=== PATIENT | female | born 2000 | race Caucasian/White ===

== ENCOUNTER 2020-02-19 04:56 | Emergency (ER) | payer OTHER ==
[2020-02-19] MEDS ORDERED: Zofran 4 MG/2 ML VIAL IV ONE (05:36)
[2020-02-19] MEDS ORDERED: Hydromorphone 1 mg/ml Ampule IV ONE (05:36)
[2020-02-19] MEDS ORDERED: Sodium Chloride 0.9% 1000 ML 1,000 ML IV STA (05:36)
--- NOTE | 2020-02-19 05:36 | ERPHSYRPT ---
- History of Present Illness Historian: patient Exam Limitations: no limitations Timing/Duration: today (Most recently), intermittent (For a month), worse (This morning) Activities at Onset: sleep Quality: pressure, sharpness Abdominal Pain Onset Location: RUQ, epigastric Pain Radiation: back Severity of Pain-Max: moderate Severity of Pain-Current: moderate Modifying Factors: Improves With: vomiting Associated Symptoms: back, nausea, vomiting, No chest pain, No fever/chills, No shortness of breath Previous symptoms: same symptoms as today Hx Tetanus, Diphtheria Vaccination/Date Given: Yes Hx Influenza Vaccination/Date Given: No Hx Pneumococcal Vaccination/Date Given: No <GROVER VINES - Last Filed: 02/19/20 06:56> <PATRIC ALCALA - Last Filed: 02/19/20 10:15> - History of Present Illness Time Seen by Provider: 02/19/20 05:15 Physician History: This is an obese 19-year-old white female who presents with intermittent epigastric and right upper quadrant abdominal pain for the last month. It typically occurs early in the morning and is associated with nausea and vomiting as well as bloating and gassiness. Occasionally it radiates to the back. Patient has had no prior abdominal surgeries. She denies fever she denies chest pain she denies shortness of breath. She has had no evaluation or work-up in the past. It wakes her up out of sleep and she cannot go back to sleep because she is uncomfortable. Has had no diarrhea. (GROVER VINES) Allergies/Adverse Reactions: No Known Drug Allergies Allergy (Unverified 02/19/20 05:02) Home Medications: No Home Meds 05/25/12 [History] Travel Risk - International Travel Have you traveled outside of the country in past 3 weeks: No - Coronavirus Screening Are you exhibiting any of the following symptoms?: No Close contact with a COVID-19 positive Pt in past 14-21 Days: No <GROVER VINES - Last Filed: 02/19/20 06:56> - Review of Systems Constitutional: No Symptoms Eyes: No Symptoms Ears, Nose, & Throat: No Symptoms Respiratory: No Symptoms Cardiac: No Symptoms Abdominal/Gastrointestinal: Abdominal Pain, Nausea, Vomiting Genitourinary Symptoms: No Symptoms Musculoskeletal: No Symptoms Skin: No Symptoms Neurological: No Symptoms Psychological: No Symptoms Endocrine: No Symptoms Hematologic/Lymphatic: No Symptoms Immunological/Allergic: No Symptoms All Other Systems: Reviewed and Negative <GROVER VINES - Last Filed: 02/19/20 06:56> - Past Medical History Pertinent Past Medical History: No Neurological History: No Pertinent History ENT History: No Pertinent History Cardiac History: No Pertinent History Respiratory History: No Pertinent History Endocrine Medical History: No Pertinent History Musculoskeletal History: Other GI Medical History: No Pertinent History History: No Pertinent History Psycho-Social History: No Pertinent History Female Reproductive Disorders: No Pertinent History - Past Surgical History Past Surgical History: Yes Neuro Surgical History: No Pertinent History Cardiac: No Pertinent History Respiratory: No Pertinent History Gastrointestinal: No Pertinent History Genitourinary: No Pertinent History Musculoskeletal: No Pertinent History Female Surgical History: No Pertinent History Other Surgical History: CYST REMOVAL ON FACE,TONSILS. - Social History Smoking Status: Never smoker Exposure to second hand smoke: No Alcohol Use: None Drug Use: none Patient Lives Alone: No Significant Family History: no pertinent family hx <GROVER VINES - Last Filed: 02/19/20 06:56> - Physical Exam General Appearance: no apparent distress, alert, anxiety, obese Eye Exam: PERRL/EOMI, eyes nml inspection Ears, Nose, Throat Exam: normal ENT inspection, moist mucous membranes Neck Exam: normal inspection, non-tender, supple, full range of motion Respiratory Exam: normal breath sounds, lungs clear, airway intact, No chest tenderness, No respiratory distress Cardiovascular Exam: regular rate/rhythm, normal heart sounds, normal peripheral pulses Gastrointestinal/Abdomen Exam: soft, normal bowel sounds, tenderness (And epi gastric region), guarding, No rebound Pelvic Exam: not done Rectal Exam: not done Back Exam: normal inspection, normal range of motion, No CVA tenderness, No vertebral tenderness Extremity Exam: normal inspection, normal range of motion, pelvis stable Neurologic Exam: alert, oriented x 3, cooperative, revising clerk II-XII nml as tested, normal mood/affect, nml cerebellar function, nml station & gait, sensation nml Skin Exam: normal color, warm, dry Lymphatic Exam: No adenopathy SpO2 Interpretation: normal O2 Delivery: Room Air <GROVER VINES - Last Filed: 02/19/20 06:56> - Nursing Vital Signs Nursing Vital Signs: Initial Vital Signs Temperature 98 F 02/19/20 04:57 Pulse Rate 94 H 02/19/20 04:57 Respiratory Rate 16 02/19/20 04:57 Blood Pressure 113/76 02/19/20 04:57 O2 Sat by Pulse Oximetry 99 02/19/20 04:57 Pain Scale Pain Intensity 3 - Course Nursing assessment & vital signs reviewed: Yes <GROVER VINES - Last Filed: 02/19/20 06:56> - CT Exams Abdomen/Pelvis CT Interpretation: Tele-radiologist Report, Normal Appendix, Other (fluid in pelvis with cyst and rt lung nodule) - Radiology Ultrasound Exam Pelvis Ultrasound: discussed w/radiologist, No Torsion/Nml Flow, Other (ovarian cysts and fluid/adnexa cysts.) <PATRIC ALCALA - Last Filed: 02/19/20 10:15> Ordered Tests: Active Orders 24 hr Category Date Time Status IV Insertion STAT Care 02/19/20 05:36 Active ABDOMEN AND PELVIS W/0 CONTRAS [CT] Stat Exams 02/19/20 05:38 Taken PELVIS TRANS VAGINAL [US] Stat Exams 02/19/20 09:40 Taken AMYLASE Stat Lab 02/19/20 05:15 Completed BLOOD CULTURE Stat Lab 02/19/20 06:15 Received CBC W DIFF Stat Lab 02/19/20 05:15 Completed CMP Stat Lab 02/19/20 05:15 Completed HCG,QUALITATIVE URINE Stat Lab 02/19/20 05:15 Completed LIPASE Stat Lab 02/19/20 05:15 Completed Lactic Acid Stat Lab 02/19/20 06:40 Completed UA W/RFX UR CULTURE Stat Lab 02/19/20 05:15 Completed Medication Summary Discontinued Medications Generic Name Dose Route Start Last Admin Trade Name Freq PRN Reason Stop Dose Admin Hydromorphone HCl 1 mg 02/19/20 05:36 02/19/20 05:49 Hydromorphone 1 Mg/Ml Ampule IV 02/19/20 05:37 1 mg STAT ONE Administration Hydromorphone HCl Confirm 02/19/20 05:49 Hydromorphone 1 Mg/Ml Ampule Administered 02/19/20 05:50 Dose 1 mg .ROUTE .STK-MED ONE Sodium Chloride 1,000 mls @ 999 mls/hr 02/19/20 05:36 02/19/20 07:06 Sodium Chloride 0.9% 1000 Ml IV 02/19/20 06:36 Infused .Q1H1M STA Infusion Sodium Chloride Confirm 02/19/20 05:49 Sodium Chloride 0.9% 1000 Ml Administered 02/19/20 05:50 Dose 1,000 mls @ ud .ROUTE .STK-MED ONE Ondansetron HCl 4 mg 02/19/20 05:36 02/19/20 05:50 Zofran 4 Mg/2 Ml Vial IV 02/19/20 05:37 4 mg STAT ONE Administration Ondansetron HCl Confirm 02/19/20 05:48 Zofran 4 Mg/2 Ml Vial Administered 02/19/20 05:49 Dose 4 mg .ROUTE .STK-MED ONE Lab/Rad Data: Laboratory Result Diagrams 02/19/20 05:15 02/19/20 05:15 Laboratory Results 02/19/20 02/19/20 02/19/20 Range/Units 06:40 05:15 05:15 WBC (4.0-10.5) K/mm3 RBC (4.1-5.4) M/mm3 Hgb (12.0-16.0) gm/dl Hct (35-47) % MCV (78-100) fl MCH (26-32) pg MCHC (32-36) g/dl RDW (11.5-14.0) % Plt Count (150-450) K/mm3 MPV (7.5-11.0) fl Gran % (36.0-66.0) % Eos # (Auto) (0-0.5) Absolute Lymphs (auto) (1.0-4.6) Absolute Monos (auto) (0.0-1.3) Lymphocytes % (24.0-44.0) % Monocytes % (0.0-12.0) % Eosinophils % (0.00-5.0) % Basophils % (0.0-0.4) % Absolute Granulocytes (1.4-6.9) Basophils # (0-0.4) Sodium (137-145) mmol/L Potassium (3.5-5.1) mmol/L Chloride (98-107) mmol/L Carbon Dioxide (22-30) mmol/L Anion Gap (5-15) MEQ/L BUN (7-17) mg/dL Creatinine (0.52-1.04) mg/dL Estimated GFR ML/MIN Glucose (74-106) mg/dL Lactic Acid 1.6 (0.4-2.0) Calcium (8.4-10.2) mg/dL Total Bilirubin (0.2-1.3) mg/dL AST (14-36) U/L ALT (0-35) U/L Alkaline Phosphatase (38-126) U/L Serum Total Protein (6.3-8.2) g/dL Albumin (3.5-5.0) g/dL Amylase (30-110) U/L Lipase (23-300) U/L Urine Color RAD (YELLOW) Urine Appearance SLIGHTLY CLOUDY (CLEAR) Urine pH 6.0 (5-6) Ur Specific [place] 1.024 (1.005-1.025) Urine Protein 30 (Negative) Urine Ketones NEGATIVE (NEGATIVE) Urine Blood NEGATIVE (0-5) Joseph/ul Urine Nitrite NEGATIVE (NEGATIVE) Urine Bilirubin NEGATIVE (NEGATIVE) Urine Urobilinogen 4 (0-1) mg/dL Ur Leukocyte Esterase NEGATIVE (NEGATIVE) Urine WBC (Auto) 6-10 (0-5) /HPF Urine RBC (Auto) NONE (0-2) /HPF U Epithel Cells (Auto) RARE (FEW) /HPF Urine Bacteria (Auto) RARE (NEGATIVE) /HPF Urine Mucus (Auto) SLIGHT (NEGATIVE) /HPF Urine Culture Reflexed NO (NO) Urine Glucose NEGATIVE (NEGATIVE) mg/dL Urine HCG, Qual NEGATIVE (Negative) 02/19/20 02/19/20 Range/Units 05:15 05:15 WBC 8.4 (4.0-10.5) K/mm3 RBC 4.52 (4.1-5.4) M/mm3 Hgb 12.9 (12.0-16.0) gm/dl Hct 41.0 (35-47) % MCV 90.7 (78-100) fl MCH 28.5 (26-32) pg MCHC 31.5 L (32-36) g/dl RDW 13.4 (11.5-14.0) % Plt Count 248 (150-450) K/mm3 MPV 11.6 H (7.5-11.0) fl Gran % 60.6 (36.0-66.0) % Eos # (Auto) 0.07 (0-0.5) Absolute Lymphs (auto) 2.47 (1.0-4.6) Absolute Monos (auto) 0.78 (0.0-1.3) Lymphocytes % 29.3 (24.0-44.0) % Monocytes % 9.2 (0.0-12.0) % Eosinophils % 0.8 (0.00-5.0) % Basophils % 0.1 (0.0-0.4) % Absolute Granulocytes 5.11 (1.4-6.9) Basophils # 0.01 (0-0.4) Sodium 139 (137-145) mmol/L Potassium 4.0 (3.5-5.1) mmol/L Chloride 105 (98-107) mmol/L Carbon Dioxide 25 (22-30) mmol/L Anion Gap 13.4 (5-15) MEQ/L BUN 11 (7-17) mg/dL Creatinine 0.65 (0.52-1.04) mg/dL Estimated GFR > 60.0 ML/MIN Glucose 116 H (74-106) mg/dL Lactic Acid (0.4-2.0) Calcium 9.0 (8.4-10.2) mg/dL Total Bilirubin 0.80 (0.2-1.3) mg/dL AST 476 H (14-36) U/L ALT 345 H (0-35) U/L Alkaline Phosphatase 139 H (38-126) U/L Serum Total Protein 7.6 (6.3-8.2) g/dL Albumin 4.2 (3.5-5.0) g/dL Amylase 61 (30-110) U/L Lipase 112 (23-300) U/L Urine Color (YELLOW) Urine Appearance (CLEAR) Urine pH (5-6) Ur Specific [place] (1.005-1.025) Urine Protein (Negative) Urine Ketones (NEGATIVE) Urine Blood (0-5) Joseph/ul Urine Nitrite (NEGATIVE) Urine Bilirubin (NEGATIVE) Urine Urobilinogen (0-1) mg/dL Ur Leukocyte Esterase (NEGATIVE) Urine WBC (Auto) (0-5) /HPF Urine RBC (Auto) (0-2) /HPF U Epithel Cells (Auto) (FEW) /HPF Urine Bacteria (Auto) (NEGATIVE) /HPF Urine Mucus (Auto) (NEGATIVE) /HPF Urine Culture Reflexed (NO) Urine Glucose (NEGATIVE) mg/dL Urine HCG, Qual (Negative) - Progress Progress: improved, pain not gone completely, re-examined Counseled pt/family regarding: lab results, diagnosis, need for follow-up <GROVER VINES - Last Filed: 02/19/20 06:56> - Progress Counseled pt/family regarding: lab results, diagnosis, need for follow-up, rad results <PATRIC ALCALA - Last Filed: 02/19/20 10:15> - Progress Progress Note: 02/19/20 06:57 I transferred care to Dr. Patric Alcala at shift change. He is aware of pending studies and he will follow-up on the studies and make final disposition. (GROVER VINES) 02/19/20 07:17 pt taken over at change of shift from Dr. Vines after discussion of pending studies and intro to pt. she is doing well with improved pain and we are awaiting radiology reading. 02/19/20 08:42 radiologist advised to check US to rule out torsion of ovary given CT findings. only US tech avail is a PUI for Covid /clinically + after neg test due to symptoms. I advised pt of this and she consents to the US tech performing procedure on her with PPE and is aware of risks, . The discussion and consent was witnessed by nursing millwright supervisor also. 02/19/20 10:06 adnexal cysts also on US pt advised this will require f/u RADIATION SAFETY OFFICER this week for further w/u and to return meantime if increased pain, also GB is not ruled out or torsion intermittent and also should return in case of recurring pain she choses outpt workup rather than furhter w/u in ER o r admssion at this time. 02/19/20 10:15 abd is soft and nontender without peritoneal signs; there is no vag discharge or any vaginal symptoms at this time. (PATRIC ALCALA) <GROVER VINES - Last Filed: 02/19/20 06:56> - Departure Departure Disposition: Home Critical Care Time: No <PATRIC ALCALA - Last Filed: 02/19/20 10:15> - Departure Clinical Impression: Nodule of right lung, Elevated liver function tests, Ovarian cyst Condition: Good Referrals: KRISHNA LOZADA [Primary Care Provider] - Instructions: Acute Abdomen (Belly Pain), Adult (DC), Ovarian Cyst (DC), Liver Function Test, Pulmonary Nodule Additional Instructions: follow-up with your Drs. for the right lung nodule and elevated liver tests, and fluid in pelvis. ALthough we did not find stones on the cat scan, there still also could be gall bladder disease adn they can find this on other tests. Even though a torsion of the ovary was not seen, this can still be happening intermittently and you should return if it recurs or symptoms increase, and follow up with your Dr./RADIATION SAFETY OFFICER for the pelvic fluid and cysts to work this up as well this week as a growth may be present causing this and the symptoms. We have not yet determined the cause of the symptoms and pain so this followup is im[portant.
[2020-02-19] MEDS ORDERED: Zofran 4 MG/2 ML VIAL ONE (05:48)
[2020-02-19] MEDS ORDERED: Sodium Chloride 0.9% 1000 ML 1,000 ML ONE (05:49)
[2020-02-19] MEDS ORDERED: Hydromorphone 1 mg/ml Ampule ONE (05:49)
[2020-02-19 06:12] LABS: Absolute Neutrophil Ct (ANC) 5.11 (1.4-6.9); BASOPHIL % 0.1 % (0.0-0.4); Basophil (Absolute #) 0.01 (0-0.4); Eosinophil % 0.8 % (0.00-5.0); Eosinophil (Absolute #) 0.07 (0-0.5); Hemoglobin 12.9 gm/dl (12.0-16.0); Lymphocyte (Absolute #) 2.47 (1.0-4.6); Lymphocytes % 29.3 % (24.0-44.0); Mean Cell Volume 90.7 fl (78-100); Mean Corpuscular Hemoglobin 28.5 pg (26-32); Mean Corpuscular Hgb Concent. 31.5 g/dl (32-36); Mean Platelet Volume 11.6 fl (7.5-11.0); Monocyte (Absolute #) 0.78 (0.0-1.3); Monocytes % 9.2 % (0.0-12.0); Neutrophil % 60.6 % (36.0-66.0); Platelet Count 248 K/mm3 (150-450); Red Blood Count 4.52 M/mm3 (4.1-5.4); Red Cell Distribution Width 13.4 % (11.5-14.0); White Blood Count 8.4 K/mm3 (4.0-10.5)
[2020-02-19 06:27] LABS: ALBUMIN 4.2 g/dL (3.5-5.0); ALKALINE PHOSPHATASE 139 U/L (38-126); AMYLASE 61 U/L (30-110); ANION GAP 13.4 MEQ/L (5-15); BLOOD UREA NITROGEN 11 mg/dL (7-17); CHLORIDE 105 mmol/L (98-107); Carbon Dioxide 25 mmol/L (22-30); Creatinine 1 0.65 mg/dL (0.52-1.04); EST GLOMERULAR FILTRATION RATE > 60.0 ML/MIN; Glucose 116 mg/dL (74-106); LIPASE 112 U/L (23-300); SGOT/AST 476 U/L (14-36); SGPT/ALT 345 U/L (0-35); SODIUM 139 mmol/L (137-145); Total Protein 7.6 g/dL (6.3-8.2)
[2020-02-19 06:29] LABS: Appearance SLIGHTLY CLOUDY (CLEAR); Bacteria RARE /HPF (NEGATIVE); Bilirubin NEGATIVE (NEGATIVE); Blood NEGATIVE Ery/ul (0-5); Epithelial Cells RARE /HPF (FEW); Glucose NEGATIVE (NEGATIVE); Ketones NEGATIVE (NEGATIVE); Leukocyte Esterase NEGATIVE (NEGATIVE); Mucus SLIGHT /HPF (NEGATIVE); Nitrite NEGATIVE (NEGATIVE); Protein,Urine Dip 30 (Negative); Specific Gravity 1.024 (1.005-1.025); Urobilinogen 4 mg/dL (0-1)
[2020-02-19 10:35] VITALS: BP 96/50; PULSE 65; O2SAT 97
--- NOTE | 2020-02-19 21:29 | XRAY ---
Indication: Right upper quadrant/epigastric pain. Nausea and vomiting. Multiple contiguous axial images obtained through the abdomen and pelvis without contrast as ordered. Comparison: None Bases demonstrates right base calcified granulomas. No infiltrate or effusion. Heart is not enlarged. Stomach is distended with fluid/fluid. Noncontrasted stomach and bowel loops appear nonobstructed. Normal appendix. 5.7 cm left ovary and 8 cm right ovary cysts. No free fluid/air. Remaining liver, gallbladder, pancreas, spleen, adrenal glands, kidneys, ureters, bladder, uterus, and aorta appear unremarkable for noncontrast exam. Osseous structures intact. Impression: 1. Bilateral ovary cysts. Pelvic sonogram may yield further information. 2. Remaining CT abdomen/pelvis without contrast exam is negative. Comment: Preliminary interpretation was made by [facility]. No critical discrepancy.
--- NOTE | 2020-02-19 21:31 | XRAY ---
Indication: Ovary cyst. Two-dimensional transabdominal and transvaginal pelvic sonogram performed. Comparison: None Uterus slightly anteverted measuring 7.5 x 3.8 x 5.3 cm. Myometrium homogeneous. Endometrial stripe measures 7 mm. No endometrial cavity mass or fluid collection. Right ovary measures 4.4 x 3.1 x 3.0 cm with a 7.3 cm anechoic cyst. Left ovary measures 3.9 x 2.5 x 2.6 cm and demonstrates 2 anechoic cysts, 5.4 x 6.6 x 6.6 cm and 6.9 x 5.5 x 6.3 cm. Normal perfusion bilaterally. No solid adnexal mass or free fluid. Impression: Bilateral ovary cysts. Remaining pelvic sonogram is negative. Comment: Preliminary report was given.
== END 2020-02-19 10:52 | disposition home or self-care (01) ==
LOC: ED 04:56
DX: R91.1 Solitary pulmonary nodule (principal); R79.89 Other specified abnormal findings of blood chemistry; N83.209 Unspecified ovarian cyst, unspecified side
CPT/HCPCS: 36000; 36415; 74176; 76830; 80053; 81001; 82150; 83605; 83690; 84703; 85025; 87040; 96360; 96374; 96375; 99284; J1170; J2405